=== PATIENT | female | born 2000 | race Caucasian/White ===

== ENCOUNTER 2025-07-04 21:30 | Emergency (ER) | payer MEDICAID, SELFPAY ==
[2025-07-04 21:33] VITALS: BP 150/95; PULSE 131; RESP 19; TEMP 37.1; O2SAT 97
[2025-07-04 21:34] VITALS: BMI 24.7
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
== END 2025-07-04 21:48 | disposition home or self-care (01) ==
LOC: SERX 22:02
PROVIDERS: Emergency Provider Emergency Medicine
DX: Z02.89 Encounter for other administrative examinations (principal); Z04.1 Encounter for examination and observation following transport accident
CPT/HCPCS: 99281